=== PATIENT | female | born 2000 | race Hispanic/Latino ===

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

== ENCOUNTER 2022-11-17 00:20 | Emergency (ER) | payer OTHER ==
[~2022-11-17] VITALS: Ht 124.5 cm; Wt 65.0 kg
[~2022-11-17 00:20] MED LIST changes: +TORADOL PO
[2022-11-17 00:27] VITALS: BP 113/80
[2022-11-17 00:30] VITALS: BP 106/74
[2022-11-17 00:45] VITALS: BP 111/77
[2022-11-17 01:00] VITALS: BP 107/70
[2022-11-17 01:15] VITALS: BP 116/78
[2022-11-17] MEDS ORDERED: FLOXIN OTIC0.3 % AS (01:16)
[2022-11-17] MEDS ORDERED: AMOX/K CLAV875 M1 PO (01:16)
[2022-11-17] MEDS ORDERED: ULTRAM50 MG PO (01:16)
[2022-11-17 01:19] VITALS: BP 116/78
== END 2022-11-17 01:25 | disposition home or self-care (01) ==
LOC: ED 00:20
DX: H66.92 Otitis media, unspecified, left ear (principal); F41.9 Anxiety disorder, unspecified; Z20.822 Contact with and (suspected) exposure to COVID-19